=== PATIENT | male | born 1990 | race Caucasian/White ===

== ENCOUNTER 2018-12-24 20:10 | Emergency (ER) | payer OTHER ==
[~2018-12-24] VITALS: Ht 172.7 cm; Wt 99.8 kg
[2018-12-24 21:00] VITALS: BP_SYST 159
--- NOTE | 2018-12-24 21:40 | NUR ---
Patient to ER bed 3 to gown for evaluation. Side rails up.
[2018-12-24] MEDS ORDERED: traMADol HCL HCL 50 MG TABLET (ULTRAM) PO ONE (21:45)
--- NOTE | 2018-12-24 21:45 | NUR ---
ER at bedside examining patient.
--- NOTE | 2018-12-24 21:50 | NUR ---
patient arrived from home with complaints of lower back pain non radiating from work at [employer] Denies any chest pain sob, chills, fever or nausea. Patient is ambulatory with a steady gait.
[2018-12-24 22:34] LABS: BILIRUBIN,URINE NEGATIVE (NEGATIVE); BLOOD, URINE NEGATIVE (NEGATIVE); CLARITY/URINE CLEAR (CLEAR); COLOR,URINE YELLOW (YELLOW); GLUCOSE,URINE NEGATIVE (NEGATIVE); KETONES,URINE NEGATIVE (NEGATIVE); LEUKOCYTE ESTERASE ,URINE NEGATIVE (NEGATIVE); NITRITE, URINE NEGATIVE (NEGATIVE); PROTEIN URINE NEGATIVE (NEGATIVE); UROBILINOGEN,URINE 0.2 (0.2-1.0)
[2018-12-24 23:08] VITALS: BP_SYST 143
--- NOTE | 2018-12-24 23:08 | NUR ---
Patient given written and verbal discharge instructions and verbalizes understanding. ER MD discussed with patient the results and treatment provided. Patient in stable condition. ID arm band removed. IV catheter removed intact and dressing applied, no active bleeding. Rx of Tramadol 50mg given. Patient educated on pain management and to follow up with PMD. Pain Scale 0/10. Opportunity for questions provided and answered. Medication side effect fact sheet provided.
== END 2018-12-24 23:08 | disposition home or self-care (01) ==
LOC: SED 20:10
DX: S39.012A Strain of muscle, fascia and tendon of lower back, initial encounter (principal); X58.XXXA Exposure to other specified factors, initial encounter; Y93.89 Activity, other specified; Y92.69 Other specified industrial and construction area as the place of occurrence of the external cause; Y99.8 Other external cause status
CPT/HCPCS: 81003; 99283

== ENCOUNTER 2019-01-10 19:00 | Emergency (ER) | payer OTHER ==
[~2019-01-10] VITALS: Ht 175.3 cm; Wt 102.1 kg
[2019-01-10 19:42] VITALS: BP_SYST 150
--- NOTE | 2019-01-10 19:49 | NUR ---
Patient to ER bed 03 to gown for evaluation. Side rails up.
--- NOTE | 2019-01-10 20:00 | NUR ---
Note undone in EDM - 01/11/19 at 0624 by [email or web address] Pt came to the ED for R pinky finger pain and swelling after he hit the wall today. Denies n/v/d or fever. No other complaints/injuries noted. Will cont. to monitor.
--- NOTE | 2019-01-10 20:10 | NUR ---
PT came to the ED for acute onset of R finger pain which occurred 4 hours prior to arrival. Reports that he hit his hand on a wall. Reports taht his pain was mild in severity. C/O of mild tingling when bending the finger and localized swelling. Reports he took ibuprofen and ice the affected area with so me relief. Denies n/v/d or fever. No other complaints/injuries noted. WIll cont. to monitor.
--- NOTE | 2019-01-10 20:15 | NUR ---
ER at bedside examining patient.
--- NOTE | 2019-01-10 21:23 | NUR ---
Patient given written and verbal discharge instructions and verbalizes understanding. ER MD Dr. Murphy discussed with patient the results and treatment provided. Patient in stable condition. ID arm band removed. I Rx of ibuprofen and norco given. Patient educated on pain management and to follow up with PMD. Pain Scale 0/10. Opportunity for questions provided and answered. Medication side effect fact sheet provided.
[2019-01-11 06:27] VITALS: BP_SYST 150
== END 2019-01-10 21:23 | disposition home or self-care (01) ==
LOC: SED 19:00
DX: S62.636A Displaced fracture of distal phalanx of right little finger, initial encounter for closed fracture (principal); R03.0 Elevated blood-pressure reading, without diagnosis of hypertension; E78.5 Hyperlipidemia, unspecified; W22.8XXA Striking against or struck by other objects, initial encounter; Y93.89 Activity, other specified; Y92.89 Other specified places as the place of occurrence of the external cause; Y99.8 Other external cause status
CPT/HCPCS: 99283

== ENCOUNTER 2021-04-04 21:10 | Emergency (ER) | payer OTHER ==
[~2021-04-04] VITALS: Ht 175.3 cm; Wt 99.8 kg
[2021-04-04 21:18] VITALS: BP_SYST 149
--- NOTE | 2021-04-04 21:21 | NUR ---
Patient triaged and placed in waiting room. VSS and patient appears in no acute distress at this time. Accompanied by self, awaiting available bed, and MD notified of need for MSE.
--- NOTE | 2021-04-04 22:20 | NUR ---
SEEN BY MD WEBSTER IN TRIAGE ROOM FOR EVALUATION.
--- NOTE | 2021-04-04 22:38 | NUR ---
Pt BIB family to ED C/O right ankle pain that started 3 hours ago after playing football. Patient states that he rolled his ankle while playing football. Symptoms getting worse. Symptoms provoked by ambulation and better with rest. Symptoms constant 7-10 throbbing pain, nonradiating at the right ankle. No history of ankle injury or fracture.
[2021-04-04] MEDS ORDERED: IBUP800T54 PO (22:43)
--- NOTE | 2021-04-04 22:53 | NUR ---
Patient wheeled to chair 1
[2021-04-04] MEDS: IBUPROFEN 800 MG TABLET PO ONE (23:06)
[2021-04-05] VITALS: BP_SYST 149
--- NOTE | 2021-04-05 | NUR ---
Patient given written and verbal discharge instructions and verbalizes understanding. ER MD discussed with patient the results and treatment provided. Patient in stable condition. ID arm band removed. Rx of Ibuprofen given. Patient educated on pain management and to follow up with PMD. Pain Scale 0/10 Opportunity for questions provided and answered. Medication side effect fact sheet provided.
== END 2021-04-05 | disposition home or self-care (01) ==
LOC: SED 21:10
DX: S99.911A Unspecified injury of right ankle, initial encounter (principal); Z79.899 Other long term (current) drug therapy; X50.1XXA Overexertion from prolonged static or awkward postures, initial encounter; Y93.61 Activity, american tackle football; Y92.89 Other specified places as the place of occurrence of the external cause; Y99.8 Other external cause status
CPT/HCPCS: 99283